=== PATIENT | female | born 1975 ===

== ENCOUNTER 2020-03-09 13:42 | Emergency (ER) | payer OTHER ==
[~2020-03-09] VITALS: Ht 175.3 cm; Wt 68.0 kg
--- NOTE | 2020-03-09 15:00 | NUR ---
pt requesting to change the px from zithromax to amoxicilli. notified.
--- NOTE | 2020-03-09 15:35 | NUR ---
Patient discharged to home in stable condition. Written and verbal after care instructions given. Patient verbalizes understanding of instructions. Stressed follow up or return to ER for worsening s/s. Addendum: 03/09/20 at 1622 by PRINCE pt denies to be homeless, says has a home to go and will use ub[employer] to get there
== END 2020-03-09 15:36 | disposition home or self-care (01) ==
LOC: ER 13:42
DX: J20.9 Acute bronchitis, unspecified (principal); Z87.01 Personal history of pneumonia (recurrent); Z20.822 Contact with and (suspected) exposure to COVID-19
CPT/HCPCS: 71045; A4663